=== PATIENT | female | born 1965 | race Caucasian/White ===

== ENCOUNTER 2016-06-29 15:35 | Emergency (ER) | payer OTHER ==
[~2016-06-29] VITALS: Ht 157.5 cm; Wt 63.4 kg
[2016-06-29 16:34] LABS: ADD MIUA? YES; BILIRUBIN NEGATIVE; BLOOD NEGATIVE; COLOR YELLOW ((YELLOW)); GLUCOSE (STRIP) NEGATIVE; KETONES 20; LEUKOCYTES MODERATE; NITRITE NEGATIVE; PROTEIN (STRIP) 100; SPECIFIC GRAVITY 1.029 (1.000-1.030); UROBILINOGEN 0.2 MG/DL (0.2-1.0)
[2016-06-29 16:41] LABS: BACTERIA NONE SEEN /HPF; EPITHELIAL CELLS 1+ /HPF; HYALINE CASTS 0-5 /LPF; MUCUS 2+ /LPF; RED BLOOD CELLS 20-30 /HPF (0-5); UCUL ADDED? NO; WHITE BLOOD CELLS 30-40 /HPF (0-5)
[2016-06-29 16:55] LABS: MCH 30.7 PG (29.0-34.0); MCHC 33.6 G/DL (30.0-36.0); MCV 91.3 FL (83-99); MEAN PLAT.VOLUME 9.4 uM^3 (9.5-12.4); PLATELET COUNT 345 K/uL (156-360); RBC DIS.WIDTH-CV 11.4 % (11.8-14.6); WHITE BLOOD COUNT 12.4 K/uL (4.1-10.2)
[2016-06-29 17:05] LABS: CHLORIDE 104 mEq/L (99-109); POTASSIUM 3.6 mEq/L (3.7-5.4); SODIUM 137 mEq/L (136-147)
[2016-06-29 17:07] LABS: GLUCOSE 115 mg/dL (70-99)
[2016-06-29 17:08] LABS: ANION GAP 10 MEQ/L (2-14)
[2016-06-29 17:09] LABS: TOTAL BILIRUBIN 0.4 mg/dL (0.0-1.0)
[2016-06-29 17:11] LABS: ALKALINE PHOSPHATASE 66 IU/L (3-129); GFR ESTIMATE (CALCULATED) > 59 mL/min/
[2016-06-29 17:12] LABS: UREA NITROGEN (BUN) 18 mg/dL (9-23)
[2016-06-29 17:22] LABS: QUANTITATIVE HCG < 4.0 MIU/ML
[2016-06-29] MEDS ORDERED: PYRIDIUM200 MG PO (21:16)
[2016-06-29] MEDS ORDERED: KEFLEX500 MG PO (21:16)
[2016-06-29] MEDS ORDERED: PERCOCET 5/31 TABLET PO (21:27)
[2016-06-29 21:49] VITALS: BP 119/71
== END 2016-06-29 21:51 | disposition home or self-care (01) ==
LOC: EME 15:35
DX: N39.0 Urinary tract infection, site not specified (principal)
CPT/HCPCS: 76856; 80053; 81003; 84702; 85027; 99281; 99284; J1885